=== PATIENT | female | born 1975 | race Caucasian/White ===

== ENCOUNTER 2016-10-15 07:45 | Emergency (ER) | payer OTHER ==
[2016-10-15] MEDS ORDERED: Ketorolac INJ* 30 MG/ML 1 ML VIAL IV ONE (08:13)
[2016-10-15] MEDS ORDERED: Metoclopramide IV* 5 MG/ML 2 ML VIAL IV ONE (08:13)
[2016-10-15] MEDS ORDERED: NS 0.9% 1000 ML* 1,000 ML IV ONE (08:13)
[2016-10-15] MEDS ORDERED: diPHENhydraMINE IV* 50 MG/ML 1 ml VIAL (BENADRYL) IV ONE (08:13)
[2016-10-15] MEDS ORDERED: HYDROmorphone* 1 MG/ML 1 ML SYR IV ONE (10:15)
[2016-10-15] MEDS ORDERED: Ondansetron INJ* 2 MG/ML VIAL IV ONE (10:15)
[2016-10-15 11:48] VITALS: BP 109/67
--- NOTE | 2016-10-15 14:14 | ED ---
IMike,Nestor, scribed for Enrique Ralph MD on 10/15/16 at 0821 . Headache - HPI Summary HPI Summary: This 41 y/o female presents to ED for diffuse MILES since 2 days ago. Positive photophobia, nausea, and neck stiffness. PMHx includes known migraine that is controlled with rizatriptan. Pt states that this episode of headache is different from her usual frontal headache and is more diffusely located. Either rizatriptan or prescribed rizatriptan did much to relieve the pain. Pt was evaluated at [facility] urgent care yesterday and was given toradol and zofran. She had trouble sleeping last night, and decided to visit ED today when headache persists. Sulfa allergies is reviewed and confirmed with patient. Plan of care involving migraine cocktail is discussed with patient, and she is agreeable. - History Of Current Complaint Chief Complaint: EDHeadache Stated Complaint: HEADACHE Time Seen by Provider: 10/15/16 08:04 Hx Obtained From: Patient, Medical Records Onset/Duration: Gradual Onset Timing: Constant Character: Dull Location of Headache: Diffuse Aggravating Factor: Bright Lights Allevating Factors: Nothing Associated Signs And Symptoms: Neck Stiffness - Allergies/Home Medications Allergies/Adverse Reactions: Allergies Allergy/AdvReac Type Severity Reaction Status Date / Time Sulfa Antibiotics Allergy Hives Verified 10/10/13 16:12 PMH/Surg Hx/FS Hx/Imm Hx Endocrine/Hematology History: Denies: Hx Diabetes Cardiovascular History: Denies: Hx Hypertension, Hx Pacemaker/ICD Sensory History: Denies: Hx Hearing Aid Neurological History: Reports: Hx Migraine Psychiatric History: Denies: Hx Panic Disorder - Cancer History Hx Chemotherapy: No Hx Radiation Therapy: No - Surgical History Surgery Procedure, Year, and Place: WISDOM TEETH Infectious Disease History: No Infectious Disease History: Denies: Traveled Outside the [place] in Last 30 Days - Family History Known Family History: Negative: Other - breast CA - Social History Alcohol Use: None Hx Substance Use: No Substance Use Type: Reports: None Hx Tobacco Use: No Smoking Status (MU): Never Smoked Tobacco Review of Systems Negative: Fever Positive: Photophobia Positive: Headache - diffuse MILES All Other Systems Reviewed And Are Negative: Yes Physical Exam - Summary Physical Exam Summary: Well-appearing, MODERATE pain distress Warm, dry, color reflects adequate perfusion Nml head/face Nml eyes Nml ENT MILD PARACERVICAL TENDERNESS CTA, breath sound present RRR Abd soft, non-tender, Bowel sounds + Nml musculoskeletal NEGATIVE MENINGEAL SIGN. SENSORY/MOTOR INTACT. ALERT & ORIENTED. Nml psychiatric, affect/mood appropriate Triage Information Reviewed: Yes Vital Signs On Initial Exam: Initial Vitals Temp Pulse Resp BP Pulse Ox 98.0 F 85 16 123/88 100 10/15/16 07:47 10/15/16 07:47 10/15/16 07:47 10/15/16 07:47 10/15/16 07:47 Vital Signs Reviewed: Yes - Lolly Coma Scale Coma Scale Total: 15 Diagnostics - Vital Signs Vital Signs Temp Pulse Resp BP Pulse Ox 10/15/16 07:49 98.0 F 86 16 123/88 100 10/15/16 07:47 98.0 F 85 16 123/88 100 - Laboratory Lab Statement: Any lab studies that have been ordered have been reviewed, and results considered in the medical decision making process. Re-Evaluation - Re-Evaluation First Eval Re-Evaluation Time: 11:39 Change: Improved Comment: MD in room to re-evaluate patient after migraine cocktail. Symptoms improved, and pt is resting comfortably on stretcher. Headache Course/Dx - Course Course Of Treatment: Ms. Arreola presented with her typical migraine that this time has been unrelieved by her tryptan or toradol at [facility]. She was non toxic without meningeal signs and treated first with a migraine cocktail which gave her partial relief. She was then given dilaudid and was able to rest and become nearly pain free. - Diagnoses Provider Diagnoses: Migraine Discharge - Discharge Plan Condition: Stable Disposition: HOME Patient Education Materials: Migraine Headache (ED) Referrals: Magalis Cherry MD [Primary Care Provider] - 2 Days The documentation as recorded by the Mike cárdenas Soohyun accurately reflects the service I personally performed and the decisions made by me, Enrique Ralph MD.
== END 2016-10-15 12:26 | disposition home or self-care (01) ==
LOC: ED 07:45
DX: G43.909 Migraine, unspecified, not intractable, without status migrainosus (principal); Z88.2 Allergy status to sulfonamides
CPT/HCPCS: 96360; 96374; 96375; 99282; J1170; J1200; J1885; J2405